=== PATIENT | male | born 1990 | race Caucasian/White ===

== ENCOUNTER 2016-09-15 16:00 | Emergency (ER) | payer SELFPAY ==
[~2016-09-15] VITALS: Ht 180.3 cm; Wt 84.1 kg
[2016-09-15] MEDS ORDERED: HYDROCODONE/ACETAMINOPHEN 10-325 MG TABLET PO ONE (17:15)
[2016-09-15 19:18] VITALS: BP 124/71
== END 2016-09-15 19:21 | disposition home or self-care (01) ==
LOC: EMS 16:03
DX: S62.111A Displaced fracture of triquetrum [cuneiform] bone, right wrist, initial encounter for closed fracture (principal); F17.210 Nicotine dependence, cigarettes, uncomplicated; F12.90 Cannabis use, unspecified, uncomplicated; W19.XXXA Unspecified fall, initial encounter; Y93.89 Activity, other specified; Y92.89 Other specified places as the place of occurrence of the external cause; Y99.8 Other external cause status
CPT/HCPCS: 99284